=== PATIENT | female | born 1945 | race Hispanic/Latino ===

== ENCOUNTER → 2020-10-16 | Outpatient (CLI) | payer OTHER | END | disposition home or self-care (01) | LOC: RAH 14:42 | PROVIDERS: ATTEND Internal Medicine | DX: S80.12XA Contusion of left lower leg, initial encounter (principal); Z04.3 Encounter for examination and observation following other accident; M17.12 Unilateral primary osteoarthritis, left knee; M25.762 Osteophyte, left knee; W19.XXXA Unspecified fall, initial encounter; Y93.89 Activity, other specified; Y92.89 Other specified places as the place of occurrence of the external cause; Y99.8 Other external cause status | CPT/HCPCS: 73562; 73590 ==

== ENCOUNTER 2024-10-04 20:10 | Emergency (ER) | payer OTHER ==
[~2024-10-04] VITALS: Ht 157.5 cm; Wt 77.1 kg
[~2024-10-04 20:10] MED LIST: ACET-2079 PO; CETI-89 PO; LISI5TAB21 PO; METF-444 PO; METO25 PO; MIRA50TA PO; SIMV-43 PO
--- NOTE | 2024-10-04 20:18 | ERN ---
ED Note History of Present Illness Stated Complaint: TRIP AND FALL Chief Complaint: Mechanical Fall Time Seen by MD: 20:11 Dictation: PATIENT IS A 79-YEAR-OLD FEMALE CAME IN VIA EMS WITH COMPLAINTS OF RIGHT INFERIOR AND LATERAL RIB AND CHEST WALL PAIN TENDERNESS STATUS POST A TRIP FALL. SHE STATES SHE WAS WALKING WHEN SHE TRIPPED ON A BRICK THERE WAS ON THE GROUND. LANDED ON HER RIGHT CHEST. THERE WAS NO BRUISING NO CONTUSIONS BILATERAL BREATH SOUNDS ARE CLEAR. SHE HAS NO NECK PAIN NO BACK PAIN SHE DID NOT HIT HER HEAD. NO BLOOD THINNERS AND NO TRAUMA ALERT CRITERIA. Allergies: Uncoded Allergies: ERYTHROMYCIN (Allergy, Unknown, 12/22/23) Home Meds Active Scripts Acetaminophen with Codeine (Acetaminophen-Cod #3 Tablet) 300 Mg-30 Mg Tablet, 1 EACH PO Q4PRN PRN for PAIN LEVEL 6 TO 10 for 10 Days, #10 TAB Prov:GIOVANI BAIN NP 12/23/23 Reported Medications Cetirizine HCl (Zyrtec) 10 Mg Tablet, 1 TAB PO DAILY for allergy symptoms for 30 Days, #30 TAB 0 Refills 12/22/23 Mirabegron (Myrbetriq) 50 Mg Tab.er.24h, 1 TAB PO HS 12/22/23 Simvastatin (Simvastatin) 20 Mg Tablet, 1 TAB PO PCDINNER 12/22/23 Metoprolol Tartrate (Lopressor) 25 Mg Tab, 1 TAB PO DAILY 12/22/23 Metformin HCl (Metformin HCl) 500 Mg Tablet, 1 TAB PO BID 12/22/23 Lisinopril (Lisinopril) 5 Mg Tablet, 1 TAB PO DAILY 12/22/23 Past Medical History Past Medical History: Diabetes-Type II, High Cholesterol, Hypertension Surgical History: Other History: Not Applicable RN Note Reviewed/Agreed w/PFSH: Yes Review of System Dictation CONSTITUTIONAL: NEGATIVE EXCEPT FOR HPI HEAD/FACE: NEGATIVE EXCEPT FOR HPI EENT: NEGATIVE EXCEPT FOR HPI RESPIRATORY: NEGATIVE EXCEPT FOR HPI RIGHT INFERIOR AND LATERAL CHEST WALL PAIN TENDERNESS GASTROINTESTINAL/ABDOMINAL: NEGATIVE EXCEPT FOR HPI GENITOURINARY: NEGATIVE EXCEPT FOR HPI MUSCULOSKELETAL: NEGATIVE EXCEPT FOR HPI INTEGUMENTARY: NEGATIVE EXCEPT FOR HPI NEUROLOGICAL/PSYCH: NEGATIVE EXCEPT FOR HPI HEMATOLOGIC/LYMPHATIC: NEGATIVE EXCEPT FOR HPI ALL SYSTEMS NEGATIVE, EXCEPT NOTED ABOVE. 13 POINT REVIEW OF SYSTEMS ASSESSED AND ALL NEGATIVE EXCEPT FOR ABOVE. Initial Vital Sign VS Vital Signs Date Time Temp Pulse Resp B/P (MAP) Pulse Ox O2 Delivery O2 Flow Rate FiO2 10/04/24 20:11 98.1 59 18 118/61 95 Room Air 0 10/04/24 20:19 21 Physical Exam Dictation VITAL SIGNS REVIEWED GENERAL APPEARANCE: ALERT, ORIENTED X 3, MODERATE ACUTE DISTRESS, WELL DEVELOPE D, NOURISHED. HEAD AND FACE: NON-TRAUMATIC. EYES: PERRL, PINK CONJUNCTIVAS, EYELID NO TRAUMA, ANTERIOR CHAMBER WITH ARCUS SENILIS. EARS: PINNAS INTACT AND NO SIGNS OF TRAUMA OR ERYTHEMA EAR CANALS CLEAR AND NO DISCHARGE TM NO ERYTHEMA NOSE: NO DISCHARGE, NO BLEEDING. OROPHARYNX: MOUTH NORMAL, TONGUE PINK, PHARYNX CLEAR,NO ERYTHEMA, TONSILS NO EXUDATES, NO ABSCESSES NOTED, MUCOUS MEMBRANE MOIST NECK: SUPPLE, NON-TENDER, NO THYROMEGALY, NO MASSES, NO JVD, NO BRUITS BREAST:DEFERRED CHEST: RIGHT INFEROLATERAL RIB AND CHEST WALL TENDERNESS WITH PALPATION TENDERNESS, NO CREPITUS, NO PARADOXICAL MOVEMENT, NO RETRACTIONS BILATERAL BREATH SOUNDS CLEAR, NO FLAIL T LUNGS:CLEAR, WELL-VENTILATED, SYMMETRIC, NO RALES, NO WHEEZING, NO RHONCHI, NO STRIDOR, GOOD BREATH SOUNDS BILATERALLY HEART: REGULAR RATE, REGULAR RHYTHM, NO MURMUR, NO GALLOPS VASCULAR: NO PERIPHERAL EDEMA, ABDOMEN: SOFT, POSITIVE BOWEL SOUNDS, NONDISTENDED, NO GUARDING, NONTENDER, NO REBOUND, NO MASSES NO HEPATOMEGALY, NO SPLENOMEGALY, NO GLORIA'S SIGN, NO HERNIAS. RECTAL: DEFERRED GENITAL: DEFERRED NEUROLOGICAL: NORMAL SPEECH, MOTOR FUNCTION INTACT, SENSORY FUNCTION INTACT MUSCULOSKELETAL: NECK NONTENDER, FULL RANGE OF MOTION, BACK NONTENDER, FULL RANGE OF MOTION, EXTREMITIES: NONTENDER, FULL RANGE OF MOTION SKIN: COLOR PINK, DRY, NO TURGOR, NO RASH, NO LACERATIONS, NO ABRASIONS, NO CONTUSIONS. LYMPHATIC: DEFERRED Results (Laboratory/Radiology) Laboratory/Radiology 2124 RIB SERIES DEMONSTRATES POSSIBLE ONE FRACTURE LUNGS INFLATED NO INFILTRATES Labs Reviewed?: Yes ED Course ED Course Orders Procedure Category Date Status Time Ribs Uni Rt W Pa RAD 10/04/24 Taken Chest 3+ Vws 20:14 Ketorolac PHA 10/04/24 Complete Tromethamine 30mg/Ml 20:30 Acetaminophen With PHA 10/04/24 Complete Codeine (Tylenol-Code 20:30 Current Medications Medications (Trade) Dose Ordered Sig/Franky Route PRN Reason Start Time Stop Time Status Last Admin Dose Admin Acetaminophen/ Codeine Phosphate (TYLenol-coDEINE TAB) 2 tab ONCE ONCE PO 10/04/24 20:30 10/04/24 20:31 DC 10/04/24 20:27 Ketorolac Tromethamine (toRADol) 30 mg ONCE ONCE IVP 10/04/24 20:30 10/04/24 20:31 DC 10/04/24 20:28 Vital Signs Date Time Temp Pulse Resp B/P (MAP) Pulse Ox O2 Delivery O2 Flow Rate FiO2 10/04/24 20:19 98.1 59 18 118/61 95 Room Air* 0 21 10/04/24 20:11 98.1 59 18 118/61 95 Room Air 0 Medical Decision Making [facility] 2126/MEDICAL DECISION-MAKING BASED ON RIB SERIES STATUS POST FALL QUESTIONABLE SINGLE RIB FRACTURE PATIENT HAD A PAIN NOW DISCHARGED HOME WITH TYLENOL NO. 3 AND TOLD TO TAKE DEEP BREATHING EXERCISES ONCE PAIN WAS MANAGED. SEE HER PRIMARY CARE DOCTOR DX & DISP Disposition: Discharge Departure Impression: Primary Impression: Contusion of right chest wall Additional Impression: Fall Condition: Stable Scripts Acetaminophen with Codeine (Acetaminophen-Cod #3 Tablet) 300 Mg-30 Mg Tablet 1 TAB PO Q4H PRN for MODERATE TO SEVERE PAIN, #10 TAB Prov: JED GONSALVES COUNTER [employer]OLDER 10/04/24 Additional Instructions: Follow-up with primary care provider in 1 to 2 days. Take medications as directed here in the emergency room. Okay to continue home medications unless otherwise discussed during your visit in the emergency room today. Return to your nearest emergency room if symptoms worsen or if there is no improvement. Call 911 if you need immediate assistance. Take Tylenol or Motrin [id number] as needed and if no contraindications are present. Increase oral hydration. A wound culture or urine culture was ordered here in the emergency room department please follow-up with primary care provider and advise them to get repeat ports from our facility. If you had any Yordan wrap/splints that were applied here, please do not remove them until you see your primary care or specialty. Take Tylenol with codeine as directed for severe pain. Take deep breathing exercises four to 5 times a day with 10 deep breaths each time to keep lungs inflated. Follow up with your primary care doctor for management. Referrals: ROMEL GUZMAN MD (PCP) Time of Disposition: 21:24 I have reviewed the case, and I agree with, Diagnosis and Plan JED GONSALVES NP Oct 04, 2024 20:18
[2024-10-04] MEDS ORDERED: ACET-2079 PO (21:25)
[2024-10-04 21:28] VITALS: BP 121/64; PULSE 62; RESP 18; TEMP 98.1; O2SAT 95
--- NOTE | 2024-10-04 21:43 | HMCIMG ---
EXAM: CR right Rib, 5 View. CLINICAL HISTORY: RIGHT INFERIOR AND LATERAL RIB PAIN STATUS POST FALL COMPARISON: None provided. FINDINGS: LUNGS: Mild bibasilar airspace disease may reflect atelectasis. Mild cardiomegaly. Pulmonary vasculature and interstitial markings are within normal limits. PLEURAL SPACES: No pneumothorax evident. No pleural effusions. BONES: Mildly displaced fracture at the posterior, lateral aspect of the right 5th and 6th ribs. This fracture is at the posterior aspects of the right 7th and 8th ribs. IMPRESSION: 1. Mildly displaced fractures of the right 5th, 6th, 7th, and 8th ribs at their posterior and lateral aspects. /[place]
== END 2024-10-04 21:30 | disposition home or self-care (01) ==
LOC: EDH 20:10
DX: S20.211A Contusion of right front wall of thorax, initial encounter (principal); E11.9 Type 2 diabetes mellitus without complications; E78.00 Pure hypercholesterolemia, unspecified; I10 Essential (primary) hypertension; Z79.84 Long term (current) use of oral hypoglycemic drugs; Z79.899 Other long term (current) drug therapy; Z88.1 Allergy status to other antibiotic agents; W01.0XXA Fall on same level from slipping, tripping and stumbling without subsequent striking against object, initial encounter; Y93.89 Activity, other specified; Y92.89 Other specified places as the place of occurrence of the external cause; Y99.8 Other external cause status
CPT/HCPCS: 99283; 96374; 71101; J1885